=== PATIENT | male | born 1950 | race Caucasian/White ===

== ENCOUNTER → 2020-08-12 | Outpatient (CLI) | payer MEDICARE ==
[2015-01-23 10:34] VITALS: BP 144/68
[~2020-08-12] MED LIST: HYDR-2679 PO; MULT-208 PO; NAPR220C4 PO
--- NOTE | 2020-08-12 10:10 | RAD ---
CLINICAL HISTORY: tobacco use COMPARISON: None available. TECHNIQUE: The abdominal aorta was examined from the diaphragm to the proximal common iliac arteries. FINDINGS: The proximal abdominal aorta measures 2.9 x 2.3 cm. The mid aorta measures 2 x 1.8 cm. The distal aorta measures 2.2 x 1.3 cm. The right common iliac artery measures 2.2 cm. The left common iliac artery measures 1.7 cm. IMPRESSION: No evidence for abdominal aortic aneurysm. Electronically signed by: Tung Villa MD (08/12/2020 10:08 AM) [id number]
== END ==
LOC: US 10:51
PROVIDERS: ATTEND Family Medicine
DX: Z72.0 Tobacco use (principal)
CPT/HCPCS: 76770

== ENCOUNTER → 2020-09-11 | Outpatient (CLI) | payer MEDICARE ==
[2015-01-23 10:34] VITALS: BP 144/68
--- NOTE | 2020-09-11 15:34 | KCIC ---
Exam performed: 2 views of the chest. Indication: Reason: Hoarseness, difficulty swallowing, past smoker of 50 yrs. / Spl. Instructions: Op en heart 3 yrs. ago, neck surgery / History: Date of Service: 09/11/2020 3:09 PM. Comparison : 2 views chest from 03/10/2009 Findings: PA and lateral radiographs of the chest reveal a normal cardiomediastinal contour. Previous median st ernotomy. There is a partially calcified nodule in the right paratracheal region. No focal infiltrate s or pleural effusion is seen . The visualized osseous structures are unremarkable. Impression: Right paratracheal partially calcified nodule is noted. This perhaps represents a lymph node. Given s ymptoms of hoarseness and history of smoking, evaluation with CT chest may be obtained to rule out po ssibility of a pulmonary mass. Electronically signed by: Luh Tapia MD (09/11/2020 3:32 PM) [id number]
== END ==
LOC: KCIC 15:06
PROVIDERS: ATTEND Internal Medicine Gastroenterology
DX: R91.1 Solitary pulmonary nodule (principal); R13.10 Dysphagia, unspecified; R49.0 Dysphonia; Z87.891 Personal history of nicotine dependence
CPT/HCPCS: 71046

== ENCOUNTER → 2021-03-18 | Outpatient (CLI) | payer MEDICARE ==
[2015-01-23 10:34] VITALS: BP 144/68
--- NOTE | 2021-03-18 09:20 | RAD ---
EXAM: Scrotal sonogram; right inguinal sonogram.. HISTORY: Right groin tightness. TECHNIQUE: Vences scale and color Doppler sonographic imaging of the scrotum and right inguinal region was performed. COMPARISON: None. FINDINGS: The testes are normal in size and demonstrate normal symmetric blood flow. No focal testicu lar parenchymal lesion is seen. The epididymides are unremarkable. There is a small left hydrocele. T here is no varicocele. No inguinal hernia, mass or lymphadenopathy is seen. IMPRESSION: 1. Unremarkable testes. 2. Small left hydrocele. 3. No suspicious finding within the right inguinal region at the site of reported concern. Electronically signed by: Zandra Ram MD (03/18/2021 9:18 AM) [facility]
== END ==
LOC: US 06:48
PROVIDERS: ATTEND Family Medicine
DX: N43.3 Hydrocele, unspecified (principal); N50.82 Scrotal pain; R10.30 Lower abdominal pain, unspecified
CPT/HCPCS: 76870; 76882

== ENCOUNTER → 2021-11-12 | Outpatient (CLI) | payer MEDICARE ==
[2015-01-23 10:34] VITALS: BP 144/68
--- NOTE | 2021-11-12 09:35 | KCIC ---
INDICATION: Reason: Elevated Liver Enzymes / Spl. Instructions: / History: COMPARISON: None. TECHNIQUE: Grayscale and color ultrasound images obtained through the abdomen. FINDINGS: Pancreas: Largely obscured by bowel gas. Liver: Echotexture within normal limits. Gallbladder: Small amount of sludge within. Wall is near the upper limits of normal at 3 mm. Common Bile Duct: Not dilated. Right Kidney: No hydronephrosis. Left Kidney: No hydronephrosis. Cyst measuring up to 82 mm. There is a thin septation. Spleen: Echogenic foci within which can be calcification. Aorta/IVC: Limited visualization secondary to overlying bowel gas. IMPRESSION: * Small amount of sludge within the gallbladder with a portion of the wall borderline in thickness. No common bile duct dilation. * Cyst at the left kidney with a thin septation. Given the mild internal complexity follow-up could be obtained in a year to ensure no increase. Electronically signed by: Min Blackman MD (11/12/2021 9:33 AM) [id number]
== END ==
LOC: KCIC US 07:56
PROVIDERS: ATTEND Family Medicine
DX: N28.1 Cyst of kidney, acquired (principal); K82.8 Other specified diseases of gallbladder; R74.01 Elevation of levels of liver transaminase levels
CPT/HCPCS: 76700